=== PATIENT | male | born 1995 | race Caucasian/White ===

== ENCOUNTER 2020-09-18 02:48 | Emergency (ER) | payer BC ==
[~2020-09-18] VITALS: Ht 182.9 cm; Wt 88.5 kg
[2020-09-18 02:52] VITALS: BP 148/95
--- NOTE | 2020-09-18 03:01 | NUR ---
PT TO ER BED 9 WITH RIGHT THUMB PAIN FOR 1 x MONTH. PATIENT STATES WORSENING TODAY. PATIENT IS AAOX4. NO SOB. VSS.
--- NOTE | 2020-09-18 03:47 | NUR ---
Patient discharged to home in stable condition. Written and verbal after care instructions given. Patient verbalizes understanding of instruction.
--- NOTE | 2020-09-18 03:48 | NUR ---
PT WILL FOLLOW UP WITH NEUROLOGY.
== END 2020-09-18 03:48 | disposition home or self-care (01) ==
LOC: ER 02:48
DX: R53.1 Weakness (principal); F19.10 Other psychoactive substance abuse, uncomplicated